=== PATIENT | male | born 1955 | race American Indian/Alaskan Native ===

== ENCOUNTER 2018-06-07 20:03 | Inpatient (IN) | payer OTHER ==
--- NOTE | 2018-06-07 20:22 | Emergency Department Report ---
ED Chest Pain HPI - General Chief Complaint: Chest Pain Stated Complaint: CHEST PAIN Time Seen by Provider: 06/07/18 20:19 Source: patient, EMS (ems notes not available at time of chart dictation), RN notes reviewed, old records reviewed Mode of arrival: Stretcher Limitations: No Limitations - History of Present Illness Initial Comments: This is a 62-year-old gentleman. The patient is not known to this provider previously. He does not have a primary care doctor that he is aware of. He is a chronic tobacco consumer. He presents to the emergency room today with complaint of nontraumatic central chest pain, present intermittently since 6:00 in the morning, shortness of breath, without vomiting or diaphoresis, and he describes his shortness of breath as "gasping for air." The patient does not have a formal diagnosis of COPD that he is aware of, and he does not have a formal diagnosis of obstructive sleep apnea but he is aware of. He was given albuterol therapy in the field by EMS, as well as aspirin prior to his arrival. In the emergency room, found to be hypoxic, tachycardic and wheezing, and treated for presumed COPD/emphysema. These interventions improved his symptoms, and he feels mostly improved at this point in time. The patient denies DVT, pulmonary embolus risk factors. He denies headache, neck pain, abdominal pain, hematemesis, bright red blood per rectum. MD Complaint: chest pain -: Gradual, hour(s) Onset: during rest Pain Location: substernal Pain Radiation: none Severity: moderate Quality: aching Consistency: intermittent Improves With: medication-other, rest Worsens With: movement Treatments Prior to Arrival: aspirin, other Aspirin use within the Past 7 Days: (1) Yes - Related Data On Oral Contraceptives: No Previous Rx's Medication Instructions Recorded Last Taken Type hydroCHLOROthiazide [HCTZ] 25 mg PO QDAY #30 tablet 12/19/17 Unknown Rx Allergies Allergy/AdvReac Type Severity Reaction Status Date / Time No Known Allergies Allergy Verified 01/18/16 19:40 Heart Score - HEART Score History: Moderately suspicious EKG: Non-specific Age: 45-65 Risk factors: 1-2 risk factors Troponin: < normal limit HEART Score: 4 - Critical Actions Critical Actions: 4-6 pts:12-16.6% risk of adverse cardiac event. Should be admitted ED Review of Systems ROS: Stated complaint: CHEST PAIN Other details as noted in HPI Constitutional: denies: fever, malaise Eyes: denies: eye discharge ENT: congestion Respiratory: shortness of breath, SOB with exertion, SOB at rest, wheezing Cardiovascular: chest pain Gastrointestinal: denies: abdominal pain, vomiting Genitourinary: denies: dysuria Musculoskeletal: denies: back pain Skin: denies: lesions Neurological: denies: weakness Psychiatric: anxiety ED Past Medical Hx - Past Medical History Previous Medical History?: Yes Hx Hypertension: Yes Hx Congestive Heart Failure: No Hx Diabetes: No Hx Asthma: No Hx COPD: No Hx HIV: No Additional medical history: prostate cancer - Surgical History Past Surgical History?: Yes Additional Surgical History: hand surgery - Social History Smoking Status: Current Every Day Smoker Substance Use Type: Alcohol - Medications Home Medications: Home Medications Medication Instructions Recorded Confirmed Last Taken Type hydroCHLOROthiazide [HCTZ] 25 mg PO QDAY #30 tablet 12/19/17 Unknown Rx ED Physical Exam - General Limitations: No Limitations General appearance: alert, anxious - Head Head exam: Present: atraumatic, normocephalic - Eye Eye exam: Present: normal appearance, EOMI. Absent: nystagmus - ENT ENT exam: Present: normal exam, normal orophraynx, mucous membranes moist, normal external ear exam - Neck Neck exam: Present: normal inspection, full ROM. Absent: tenderness, meningismus - Respiratory Respiratory exam: Present: respiratory distress, wheezes, rhonchi - Cardiovascular Cardiovascular Exam: Present: normal rhythm, tachycardia, normal heart sounds. Absent: systolic murmur, diastolic murmur, rubs, gallop - GI/Abdominal GI/Abdominal exam: Present: soft. Absent: distended, tenderness, guarding, rebound, rigid, pulsatile mass - Rectal Rectal exam: Present: deferred - Extremities Exam Extremities exam: Present: normal inspection, full ROM, other (2+ pulses noted in the bilateral upper, lower extremities. Compartments soft. No long bony tenderness. The pelvis is stable.). Absent: pedal edema, joint swelling, calf tenderness - Back Exam Back exam: Present: normal inspection, full ROM. Absent: tenderness, CVA tenderness (R), paraspinal tenderness, vertebral tenderness - Neurological Exam Neurological exam: Present: alert, other (Extraocular movements intact. Tongue midline. No facial droop. Facial sensation intact to light touch in the V1, V2, V3 distribution bilaterally. 5 and 5 strength in 4 extremities.. Sensation is intact to light touch in 4 extremities.). Absent: motor sensory deficit - Psychiatric Psychiatric exam: Present: normal affect, normal mood - Skin Skin exam: Present: warm, dry, intact, normal color. Absent: rash ED Course Vital Signs 06/07/18 06/07/18 06/07/18 20:16 20:30 20:54 Pulse Rate 107 H Pulse Rate [ Anterior Bilateral Throughout] Respiratory 12 16 Rate Respiratory Rate [Anterior Bilateral Throughout] Blood Pressure 146/79 O2 Sat by Pulse 92 89 Oximetry 06/07/18 20:56 Pulse Rate Pulse Rate [ 102 H Anterior Bilateral Throughout] Respiratory Rate Respiratory 16 Rate [Anterior Bilateral Throughout] Blood Pressure O2 Sat by Pulse Oximetry - Reevaluation(s) Reevaluation #1: 06/07/18 21:55 Dr. Liu accepts to the medical service. Patient appears to be clinically improved. NIMESH score - Nimesh Score Age > 65: (0) No Aspirin use within the Past 7 Days: (0) No 3 or more CAD Risk Factors: (0) No 2 or more Angina events in past 24 hrs: (0) No Known CAD with more than 50% Stenosis: (0) No Elevated Cardiac Markers: (0) No ST Deviation Greater than 0.5mm: (0) No NIMESH Score: 0 ED Medical Decision Making - Lab Data Result diagrams: 06/07/18 20:18 06/07/18 20:18 Vital Signs 06/07/18 06/07/18 06/07/18 20:16 20:30 20:54 Pulse Rate 107 H Pulse Rate [ Anterior Bilateral Throughout] Respiratory 12 16 Rate Respiratory Rate [Anterior Bilateral Throughout] Blood Pressure 146/79 O2 Sat by Pulse 92 89 Oximetry 06/07/18 20:56 Pulse Rate Pulse Rate [ 102 H Anterior Bilateral Throughout] Respiratory Rate Respiratory 16 Rate [Anterior Bilateral Throughout] Blood Pressure O2 Sat by Pulse Oximetry Lab Results 06/07/18 06/07/18 06/07/18 Range/Units 20:18 20:18 20:36 WBC 5.0 (4.5-11.0) K/mm3 RBC 3.83 (3.65-5.03) M/mm3 Hgb 12.7 (11.8-15.2) gm/dl Hct 37.3 (35.5-45.6) % MCV 97 H (84-94) fl MCH 33 H (28-32) pg MCHC 34 (32-34) % RDW 15.3 H (13.2-15.2) % Plt Count 143 (140-440) K/mm3 Lymph % (Auto) 8.0 L (13.4-35.0) % [place] % (Auto) 7.6 H (0.0-7.3) % Eos % (Auto) 9.1 H (0.0-4.3) % Baso % (Auto) 0.8 (0.0-1.8) % Lymph # 0.4 L (1.2-5.4) K/mm3 [place] # 0.4 (0.0-0.8) K/mm3 Eos # 0.5 H (0.0-0.4) K/mm3 Baso # 0.0 (0.0-0.1) K/mm3 Seg Neutrophils % 74.5 H (40.0-70.0) % Seg Neutrophils # 3.7 (1.8-7.7) K/mm3 PT 12.6 (12.2-14.9) Sec. INR 0.89 (0.87-1.13) APTT 24.8 (24.2-36.6) Sec. D-Dimer < 135.00 (0-234) ng/mlDDU Sodium 139 (137-145) mmol/L Potassium 3.7 (3.6-5.0) mmol/L Chloride 96.5 L (98-107) mmol/L Carbon Dioxide 29 (22-30) mmol/L Anion Gap 17 mmol/L BUN 10 (9-20) mg/dL Creatinine 0.9 (0.8-1.5) mg/dL Estimated GFR > 60 ml/min BUN/Creatinine Ratio 11 % Glucose 120 H (75-100) mg/dL Calcium 10.0 (8.4-10.2) mg/dL Magnesium (1.7-2.3) mg/dL Total Creatine Kinase (55-170) units/L Troponin T < 0.010 (0.00-0.029) ng/mL 06/07/18 Range/Units 20:36 WBC (4.5-11.0) K/mm3 RBC (3.65-5.03) M/mm3 Hgb (11.8-15.2) gm/dl Hct (35.5-45.6) % MCV (84-94) fl MCH (28-32) pg MCHC (32-34) % RDW (13.2-15.2) % Plt Count (140-440) K/mm3 Lymph % (Auto) (13.4-35.0) % [place] % (Auto) (0.0-7.3) % Eos % (Auto) (0.0-4.3) % Baso % (Auto) (0.0-1.8) % Lymph # (1.2-5.4) K/mm3 [place] # (0.0-0.8) K/mm3 Eos # (0.0-0.4) K/mm3 Baso # (0.0-0.1) K/mm3 Seg Neutrophils % (40.0-70.0) % Seg Neutrophils # (1.8-7.7) K/mm3 PT (12.2-14.9) Sec. INR (0.87-1.13) APTT (24.2-36.6) Sec. D-Dimer (0-234) ng/mlDDU Sodium (137-145) mmol/L Potassium (3.6-5.0) mmol/L Chloride (98-107) mmol/L Carbon Dioxide (22-30) mmol/L Anion Gap mmol/L BUN (9-20) mg/dL Creatinine (0.8-1.5) mg/dL Estimated GFR ml/min BUN/Creatinine Ratio % Glucose (75-100) mg/dL Calcium (8.4-10.2) mg/dL Magnesium 1.80 (1.7-2.3) mg/dL Total Creatine Kinase 432 H (55-170) units/L Troponin T (0.00-0.029) ng/mL - EKG Data -: EKG Interpreted by Ct EKG shows normal: sinus rhythm Rate: tachycardia - EKG Data When compared to previous EKG there are: previous EKG unavailable 06/07/18 21:15 Sinus tachycardia, 113 bpm, normal axis, QTC prolonged, motion artifact, left ventricular hypertrophy, this EKG is not consistent with ST elevation myocardial infarction. At this EKG is appears to be unchanged from prior EKG from 01/18/2016. - Radiology Data Radiology results: report reviewed, image reviewed Print Report Referring Physician: CLAIRE KRUGER Patient Name: SANGEETA TAVERAS Date of : 1955 Sex: Male Report Date: 2018-06-07 Report Status: Finalized Findings [facility] [address] [place] [address] XRay Report Signed Patient: SANGEETA TAVERAS MR#: [id number] : 1955 Acct:[id number] Age/Sex: 62 / M ADM Date: 06/07/18 Loc: ED Attending Dr: Ordering Physician: CLAIRE KRUGER MD Date of Service: 06/07/18 Procedure(s): XR chest 1V ap Accession Number(s): [id number] cc: CLAIRE KRUGER MD Fluoro Time In Minutes: PROCEDURE: XR CHEST 1V AP TECHNIQUE: Chest radiograph single view. HISTORY: Chest Pain COMPARISONS: None . FINDINGS: Heart: Normal. Mediastinum/Vessels: Normal. Lungs/Pleural space: Normal. Bony thorax: No acute osseous abnormality. Life support devices: None. IMPRESSION: No acute cardiopulmonary abnormality. This document is electronically signed by Rosalind Rai MD., June 07 2018 08:49:30 PM ET Transcribed By: [facility] [place] Dictated By: ROSALIND RAI Electronically Authenticated By: ROSALIND RAI Signed Date/Time: 06/07/182051 - Medical Decision Making Differential diagnosis, including not limited to: Bronchitis, pneumonia, COPD, emphysema, acute coronary syndrome, pneumothorax, pulmonary embolus Assessment and plan: 62-year-old gentleman with no pulmonary embolus or DVT risk factors, low risk by well's criteria, negative d-dimer, long-term use of tobacco consumption, with probable undiagnosed COPD, obstructive airway disease, with chest pain, now improved, negative nuclear stress test in 2016, negative troponin, EKG unchanged from prior, we have recommended admission for cardiac risk stratification given his heart score of 4, and for supportive care for presumed COPD. We have discussed this with patient, who verbalizes und erstanding, and is amenable to hospitalization and admission at this time. Critical care attestation.: If time is entered above; I have spent that time in minutes in the direct care of this critically ill patient, excluding procedure time. ED Disposition Clinical Impression: Chest pain, Difficulty breathing Disposition: DC-09 OP ADMIT IP TO THIS HOSP Is pt being admited?: Yes Does the pt Need Aspirin: No (aspirin given by EMS prior to my evaluation) Condition: Stable Instructions: Chest Pain (ED) Referrals: PRIMARY CARE, [Primary Care Provider] - 3-5 Days
[2018-06-07] MEDS ORDERED: SOLU-Medrol IV ONE (20:32)
[2018-06-07] MEDS ORDERED: ATROVENT IH ONE (20:32)
[2018-06-07] MEDS ORDERED: NACL 0.9% 250ML 250 ML IV ONE (20:32)
[2018-06-07] MEDS ORDERED: NITROSTAT SL PRN (20:32)
[2018-06-07] MEDS ORDERED: TYLENOL PO ONE (20:32)
[2018-06-07] MEDS ORDERED: PROVENTIL IH ONE (20:32)
[2018-06-07] MEDS ORDERED: MAGNESIUM SULFATE 2GM/50ML 2 GM/50 ML BAG IV ONE (20:42)
[2018-06-07 20:44] LABS: Basophils % (Auto) 0.8 % (0.0-1.8); Eosinophils # (Auto) 0.5 K/mm3 (0.0-0.4); Eosinophils % (Auto) 9.1 % (0.0-4.3); Hematocrit 37.3 % (35.5-45.6); Hemoglobin 12.7 gm/dl (11.8-15.2); Lymphocytes # (Auto) 0.4 K/mm3 (1.2-5.4); Mean Corpuscular HGB Conc 34 % (32-34); Mean Corpuscular Volume 97 fl (84-94); Monocytes # (Auto) 0.4 K/mm3 (0.0-0.8); Monocytes % (Auto) 7.6 % (0.0-7.3); Platelet Count 143 K/mm3 (140-440); Red Blood Count 3.83 M/mm3 (3.65-5.03); Red Cell Distribution Width 15.3 % (13.2-15.2)
--- NOTE | 2018-06-07 20:51 | XRay Report ---
PROCEDURE: XR CHEST 1V AP TECHNIQUE: Chest radiograph single view. HISTORY: Chest Pain COMPARISONS: None . FINDINGS: Heart: Normal. Mediastinum/Vessels: Normal. Lungs/Pleural space: Normal. Bony thorax: No acute osseous abnormality. Life support devices: None. IMPRESSION: No acute cardiopulmonary abnormality. This document is electronically signed by Silvino Rai MD., June 07 2018 08:49:30 PM ET
[2018-06-07 20:53] LABS: INR 0.89 (0.87-1.13); Partial Thromboplastin Time 24.8 Sec. (24.2-36.6)
[2018-06-07 21:04] LABS: BUN/Creatinine Ratio 11; Blood Urea Nitrogen 10 mg/dL (9-20); Hemolysis Index 6
[2018-06-07] MEDS ORDERED: MORPHINE IV ONE (22:29)
--- NOTE | 2018-06-07 22:58 | History and Physical Report ---
History of Present Illness Date of examination: 06/07/18 History of present illness: 62-year-old male with a history of prostate cancer, comes to the emergency room complaining of shortness of breath, wheezing, nonproductive cough. Also complaining of chest pain in the epigastric area which is a dull, constant pain, intensity 5/10, no radiation, can't identify exacerbating or relieving factors. Admits to diaphoresis, palpitation. Review of systems Constitutional: no weight loss, chills, fever Ears, eyes, nose, mouth and throat: no nasal congestion, no nasal discharge, no sinus pressure, no vision change, no red eye. Neck: No neck pain or rigidity. Cardiovascular: no palpitations,+ chest pain Respiratory: no cough, +shortness of breath Gastrointestinal: no abdominal pain Genitourinary : no frequency , no hematuria Musculoskeletal: no joint swelling or muscle ache Integumentary: no rash, no pruritis Neurological: no parathesias, no focal weakness Endocrine: no cold or heat intolerance, no polyuria or polydipsia Hematologic/Lymphatic: no easy bruising, no easy bleeding, no gland swelling Allergic/Immunologic: no urticaria, no angioedema. PAST MEDICAL HISTORY: prostate cancer PAST SURGICAL HISTORY: None SOCIAL HISTORY: Drink 1 pint of work on weekends, smoke 1 pack a day, no drugs FAMILY HISTORY: Hypertension Medications and Allergies Allergies Allergy/AdvReac Type Severity Reaction Status Date / Time No Known Allergies Allergy Verified 01/18/16 19:40 Active Meds: Active Medications Nitroglycerin (Nitrostat) 0.4 mg SL .Q5MIN PRN PRN Reason: Chest Pain Exam - Physical Exam Narrative exam: Gen. appearance: Patient lying in bed, no apparent distress HEENT: Normocephalic, atraumatic, pupils equally round and reactive to light, extraocular movement intact, and no sclericterus,. No JVD or thyromegaly or nodule,neck supple, no carotid bruit ,mucous membranes moist, no exudate or erythema Heart: S1, S2, regular rate and rhythm Lungs: Wheezing bilaterally, breathing comfortable Abdomen: Positive bowel sounds, non-tender, nondistended, no organomegaly Extremity:no edema cyanosis, clubbing Skin: no rash, dry, warm Neuro: Oriented 3, cranial nerves II-12 intact, speech is fluent, motor and sensory intact - Constitutional Vitals: Temp Pulse Resp BP Pulse Ox 88 18 142/78 99 06/07/18 22:48 06/07/18 22:48 06/07/18 22:00 06/07/18 22:00 Results - Labs CBC & Chem 7: 06/07/18 20:18 06/07/18 20:18 Labs: Abnormal lab results 06/07/18 06/07/18 06/07/18 Range/Units 20:18 20:18 20:36 MCV 97 H (84-94) fl MCH 33 H (28-32) pg RDW 15.3 H (13.2-15.2) % Lymph % (Auto) 8.0 L (13.4-35.0) % [place] % (Auto) 7.6 H (0.0-7.3) % Eos % (Auto) 9.1 H (0.0-4.3) % Lymph # 0.4 L (1.2-5.4) K/mm3 Eos # 0.5 H (0.0-0.4) K/mm3 Seg Neutrophils % 74.5 H (40.0-70.0) % Chloride 96.5 L (98-107) mmol/L Glucose 120 H (75-100) mg/dL Total Creatine Kinase 432 H (55-170) units/L - Imaging and Cardiology EKG: image reviewed Chest x-ray: report reviewed Assessment and Plan Assessment Chest pain Suspect COPD Plan Check cardiac enzymes, stress test start steroids, breathing treatment DVT prophylaxis
[2018-06-07] MEDS ORDERED: TYLENOL PO PRN (23:37)
[2018-06-07] MEDS ORDERED: ZOFRAN IV PRN (23:37)
[2018-06-07] MEDS ORDERED: MORPHINE IV PRN (23:37)
[2018-06-07] MEDS ORDERED: SODIUM CHLORIDE FLUSH SYRINGE 10 ML IV PRN (23:37)
[2018-06-08] MEDS: DUONEB *Not for PRN Use IH SCH ×4 (02:03→20:28)
[2018-06-08] MEDS ORDERED: APRESOLINE IV PRN ×2 (04:20→10:29)
[2018-06-08] MEDS ORDERED: SOLU-Medrol IV SCH ×2 (06:40→10:29)
[2018-06-08 08:26] LABS: Hematocrit 38.6 % (35.5-45.6); Hemoglobin 13.1 gm/dl (11.8-15.2); Mean Corpuscular HGB Conc 34 % (32-34); Mean Corpuscular Volume 96 fl (84-94); Red Blood Count 4.01 M/mm3 (3.65-5.03); Red Cell Distribution Width 15.6 % (13.2-15.2)
[2018-06-08 08:32] LABS: Platelet Count 146 K/mm3 (140-440)
[2018-06-08 08:45] LABS: Creatine Kinase MB 12.8 ng/mL (0.0-4.0)
[2018-06-08 09:09] LABS: BUN/Creatinine Ratio 15; Blood Urea Nitrogen 12 mg/dL (9-20); Calcium 9.9 mg/dL (8.4-10.2); Hemolysis Index 50
[2018-06-08] MEDS ORDERED: LOVENOX SUB-Q SCH (10:00)
[2018-06-08 10:48] LABS: Basophils % (Manual) 0 % (0.0-1.8); Eosinophils % (Manual) 0 % (0.0-4.3); Monocytes % (Manual) 0 % (0.0-7.3); Platelet Estimate Consistent w Auto; RBC Morphology Normal; Total Cells Counted 100
[2018-06-08] MEDS: LOVENOX SUB-Q SCH ×2 (11:09→11:35)
[2018-06-08] MEDS: SODIUM CHLORIDE FLUSH SYRINGE 10 ML IV SCH ×2 (11:10→21:05)
[2018-06-08] MEDS: HABITROL TD SCH (11:10)
[2018-06-08] MEDS: NORVASC PO SCH (11:11)
[2018-06-08] MEDS: COREG PO SCH ×2 (11:14→21:04)
--- NOTE | 2018-06-08 15:07 | Progress Note ---
Assessment and Plan Assessment and plan: Chest pain, rule out ACS -Serial troponin levels negative -For stress test in am Suspected COPD with acute exacerbation -Improving on treatment, will start steroid taper Hypertension -Uncontrolled, antihypertensives started Metabolic acidosis -We'll monitor level Hyperglycemia -Probably secondary to steroid use -We'll check hemoglobin A1c level Tobacco abuse -Continue nicotine patch Disposition: For possible discharge tomorrow if stress test is negative History Interval history: Patient reports feeling better today. He denies current chest pain. Hospitalist Physical - Constitutional Vitals: Temp Pulse Resp BP Pulse Ox 98.0 F 90 20 154/85 94 06/08/18 11:40 06/08/18 13:45 06/08/18 13:45 06/08/18 11:40 06/08/18 11:40 General appearance: Present: no acute distress - EENT Eyes: Present: PERRL, EOM intact ENT: hearing intact, clear oral mucosa - Neck Neck: Present: supple - Respiratory Respiratory effort: normal Respiratory: bilateral: CTA - Cardiovascular Rhythm: regular Heart Sounds: Present: S1 & S2 - Extremities Extremities: No edema - Abdominal General gastrointestinal: soft, non-tender, non-distended, normal bowel sounds - Integumentary Integumentary: Present: clear, warm, dry - Neurologic Neurologic: CNII-XII intact Results - Labs CBC & Chem 7: 06/08/18 08:08 06/08/18 08:08 Labs: Laboratory Last Values WBC 5.6 K/mm3 (4.5-11.0) 06/08/18 08:08 RBC 4.01 M/mm3 (3.65-5.03) 06/08/18 08:08 Hgb 13.1 gm/dl (11.8-15.2) 06/08/18 08:08 Hct 38.6 % (35.5-45.6) 06/08/18 08:08 MCV 96 fl (84-94) H 06/08/18 08:08 MCH 33 pg (28-32) H 06/08/18 08:08 MCHC 34 % (32-34) 06/08/18 08:08 RDW 15.6 % (13.2-15.2) H 06/08/18 08:08 Plt Count 146 K/mm3 (140-440) 06/08/18 08:08 Lymph % (Auto) 8.0 % (13.4-35.0) L 06/07/18 20:18 [place] % (Auto) 7.6 % (0.0-7.3) H 06/07/18 20:18 Eos % (Auto) 9.1 % (0.0-4.3) H 06/07/18 20:18 Baso % (Auto) 0.8 % (0.0-1.8) 06/07/18 20:18 Lymph # 0.4 K/mm3 (1.2-5.4) L 06/07/18 20:18 [place] # 0.4 K/mm3 (0.0-0.8) 06/07/18 20:18 Eos # 0.5 K/mm3 (0.0-0.4) H 06/07/18 20:18 Baso # 0.0 K/mm3 (0.0-0.1) 06/07/18 20:18 Add Manual Diff Complete 06/08/18 08:08 Total Counted 100 06/08/18 08:08 Seg Neutrophils % Red Lead Burner 06/08/18 08:08 Seg Neuts % (Manual) 99.0 % (40.0-70.0) H 06/08/18 08:08 Band Neutrophils % 0 % 06/08/18 08:08 Lymphocytes % (Manual) 1.0 % (13.4-35.0) L 06/08/18 08:08 Reactive Lymphs % (Man) 0 % 06/08/18 08:08 Monocytes % (Manual) 0 % (0.0-7.3) 06/08/18 08:08 Eosinophils % (Manual) 0 % (0.0-4.3) 06/08/18 08:08 Basophils % (Manual) 0 % (0.0-1.8) 06/08/18 08:08 Metamyelocytes % 0 % 06/08/18 08:08 Myelocytes % 0 % 06/08/18 08:08 Promyelocytes % 0 % 06/08/18 08:08 Blast Cells % 0 % 06/08/18 08:08 Nucleated RBC % 1.0 % (0.0-0.9) H 06/08/18 08:08 Seg Neutrophils # 3.7 K/mm3 (1.8-7.7) 06/07/18 20:18 Seg Neutrophils # Man 5.5 K/mm3 (1.8-7.7) 06/08/18 08:08 Band Neutrophils # 0.0 K/mm3 06/08/18 08:08 Lymphocytes # (Manual) 0.1 K/mm3 (1.2-5.4) L 06/08/18 08:08 Abs React Lymphs (Man) 0.0 K/mm3 06/08/18 08:08 Monocytes # (Manual) 0.0 K/mm3 (0.0-0.8) 06/08/18 08:08 Eosinophils # (Manual) 0.0 K/mm3 (0.0-0.4) 06/08/18 08:08 Basophils # (Manual) 0.0 K/mm3 (0.0-0.1) 06/08/18 08:08 Metamyelocytes # 0.0 K/mm3 06/08/18 08:08 Myelocytes # 0.0 K/mm3 06/08/18 08:08 Promyelocytes # 0.0 K/mm3 06/08/18 08:08 Blast Cells # 0.0 K/mm3 06/08/18 08:08 WBC Morphology Not Reportable 06/08/18 08:08 Hypersegmented Neuts Not Reportable 06/08/18 08:08 Hyposegmented Neuts Not Reportable 06/08/18 08:08 Hypogranular Neuts Not Reportable 06/08/18 08:08 Smudge Cells Not Reportable 06/08/18 08:08 Toxic Granulation Not Reportable 06/08/18 08:08 Toxic Vacuolation Not Reportable 06/08/18 08:08 Dohle Bodies Not Reportable 06/08/18 08:08 Pelger-Huet Anomaly Not Reportable 06/08/18 08:08 Aura Rods Not Reportable 06/08/18 08:08 Platelet Estimate Consistent w auto 06/08/18 08:08 Clumped Platelets Not Reportable 06/08/18 08:08 Plt Clumps, EDTA Not Reportable 06/08/18 08:08 Large Platelets Not Reportable 06/08/18 08:08 Giant Platelets Not Reportable 06/08/18 08:08 Platelet Satelliting Not Reportable 06/08/18 08:08 Plt Morphology Comment Not Reportable 06/08/18 08:08 RBC Morphology Normal 06/08/18 08:08 Dimorphic RBCs Not Reportable 06/08/18 08:08 Polychromasia Not Reportable 06/08/18 08:08 Hypochromasia Not Reportable 06/08/18 08:08 Poikilocytosis Not Reportable 06/08/18 08:08 Anisocytosis Not Reportable 06/08/18 08:08 Microcytosis Not Reportable 06/08/18 08:08 Macrocytosis Not Reportable 06/08/18 08:08 Spherocytes Not Reportable 06/08/18 08:08 Pappenheimer Bodies Not Reportable 06/08/18 08:08 Sickle Cells Not Reportable 06/08/18 08:08 Target Cells Not Reportable 06/08/18 08:08 Tear Drop Cells Not Reportable 06/08/18 08:08 Ovalocytes Not Reportable 06/08/18 08:08 Helmet Cells Not Reportable 06/08/18 08:08 Bird-Ambler Bodies Not Reportable 06/08/18 08:08 Blanch Rings Not Reportable 06/08/18 08:08 [place] Cells Not Reportable 06/08/18 08:08 Bite Cells Not Reportable 06/08/18 08:08 Crenated Cell Not Reportable 06/08/18 08:08 Elliptocytes Not Reportable 06/08/18 08:08 Acanthocytes (Spur) Not Reportable 06/08/18 08:08 Rouleaux Not Reportable 06/08/18 08:08 Hemoglobin C Crystals Not Reportable 06/08/18 08:08 Schistocytes Not Reportable 06/08/18 08:08 Malaria parasites Not Reportable 06/08/18 08:08 Cassius Bodies Not Reportable 06/08/18 08:08 Hem Pathologist Commnt No 06/08/18 08:08 PT 12.6 Sec. (12.2-14.9) 06/07/18 20:36 INR 0.89 (0.87-1.13) 06/07/18 20:36 APTT 24.8 Sec. (24.2-36.6) 06/07/18 20:36 D-Dimer < 135.00 ng/mlDDU (0-234) 06/07/18 20:36 Sodium 140 mmol/L (137-145) 06/08/18 08:08 Potassium 4.1 mmol/L (3.6-5.0) 06/08/18 08:08 Chloride 97.8 mmol/L (98-107) L 06/08/18 08:08 Carbon Dioxide 20 mmol/L (22-30) L D 06/08/18 08:08 Anion Gap 26 mmol/L 06/08/18 08:08 BUN 12 mg/dL (9-20) 06/08/18 08:08 Creatinine 0.8 mg/dL (0.8-1.5) 06/08/18 08:08 Estimated GFR > 60 ml/min 06/08/18 08:08 BUN/Creatinine Ratio 15 % 06/08/18 08:08 Glucose 155 mg/dL (75-100) H 06/08/18 08:08 Calcium 9.9 mg/dL (8.4-10.2) 06/08/18 08:08 Magnesium 1.80 mg/dL (1.7-2.3) 06/07/18 20:36 Total Creatine Kinase < 7 units/L (55-170) L 06/08/18 08:08 CK-MB (CK-2) 12.8 ng/mL (0.0-4.0) H 06/08/18 08:08 CK-MB (CK-2) Rel Index 100.0 (0-4) H 06/08/18 08:08 Troponin T < 0.010 ng/mL (0.00-0.029) 06/08/18 08:08 Active Medications - Current Medications Current Medications: Generic Name Dose Route Start Last Admin Trade Name Freq PRN Reason Stop Dose Admin Acetaminophen 650 mg 06/07/18 23:37 Tylenol PO Q4H PRN Pain MILD(1-3)/Fever >100.5/BARRY Albuterol/Ipratropium 1 ampul 06/08/18 02:00 06/08/18 13:35 Duoneb *Not For Prn Use* IH 1 ampul Q6HRT PETER Administration Amlodipine Besylate 10 mg 06/08/18 11:00 06/08/18 11:11 Norvasc PO 10 mg QDAY PETER Administration Carvedilol 25 mg 06/08/18 11:00 06/08/18 11:14 Coreg PO 25 mg BID PETER Administration Enoxaparin Sodium 40 mg 06/08/18 10:00 06/08/18 11:35 Lovenox SUB-Q Not Given QDAY@1000 [facility] Hydralazine HCl 10 mg 06/08/18 10:29 Apresoline IV Q6H PRN Hypertension Methylprednisolone Sodium Succinate 40 mg 06/08/18 22:00 Solu-Medrol IV Q12HR [facility] Morphine Sulfate 2 mg 06/07/18 23:37 Morphine IV Q4H PRN Pain, Moderate (4-6) Nicotine 21 mg 06/08/18 10:00 06/08/18 11:10 Habitrol TD 21 mg QDAY [facility] Administration Nitroglycerin 0.4 mg 06/07/18 20:32 Nitrostat SL .Q5MIN PRN Chest Pain Ondansetron HCl 4 mg 06/07/18 23:37 Zofran IV Q4H PRN Nausea And Vomiting Sodium Chloride 10 ml 06/08/18 10:00 06/08/18 11:10 Sodium Chloride Flush Syringe 10 Ml IV 10 ml BID PETER Administration Sodium Chloride 10 ml 06/07/18 23:37 Sodium Chloride Flush Syringe 10 Ml IV PRN PRN LINE FLUSH
[2018-06-08] MEDS: SOLU-Medrol IV SCH (21:04)
[2018-06-09] MEDS: DUONEB *Not for PRN Use IH SCH ×4 (02:20→20:24)
[2018-06-09 06:52] LABS: BUN/Creatinine Ratio 24; Blood Urea Nitrogen 19 mg/dL (9-20); Calcium 9.4 mg/dL (8.4-10.2); Hemolysis Index 8
[2018-06-09] MEDS ORDERED: LEXISCAN IV ONE ×2 (13:14→13:15)
[2018-06-09] MEDS: NORVASC PO SCH (14:51)
[2018-06-09] MEDS: COREG PO SCH ×2 (14:51→21:28)
[2018-06-09] MEDS: HABITROL TD SCH (14:52)
[2018-06-09] MEDS: SODIUM CHLORIDE FLUSH SYRINGE 10 ML IV SCH ×2 (14:53→21:28)
[2018-06-09] MEDS: LOVENOX SUB-Q SCH (14:55)
[2018-06-09] MEDS: SOLU-Medrol IV SCH (14:57)
--- NOTE | 2018-06-09 17:48 | Progress Note ---
Assessment and Plan Assessment and plan: Chest pain, rule out ACS -Serial troponin levels negative -stress test done, report pending Suspected COPD with acute exacerbation -Improved, continue steroid taper and nebulizer breathing treatments Hypertension -Controlled Metabolic acidosis -Resolved Prediabetes with hemoglobin A1c level of 6.4 -Diet control recommended Tobacco abuse -Continue nicotine patch Disposition: For discharge if stress test is negative History Interval history: Patient has no new complaints. He denies current chest pain. Hospitalist Physical - Constitutional Vitals: Temp Pulse Resp BP Pulse Ox 98 F 96 H 16 113/76 93 06/09/18 17:26 06/09/18 17:26 06/09/18 17:26 06/09/18 17:26 06/09/18 17:26 General appearance: Present: no acute distress - EENT Eyes: Present: PERRL, EOM intact ENT: hearing intact, clear oral mucosa - Neck Neck: Present: supple - Respiratory Respiratory effort: normal Respiratory: bilateral: CTA - Cardiovascular Rhythm: regular Heart Sounds: Present: S1 & S2 - Extremities Extremities: No edema - Abdominal General gastrointestinal: soft, non-tender, normal bowel sounds - Integumentary Integumentary: Present: clear, warm, dry - Neurologic Neurologic: CNII-XII intact Results - Labs CBC & Chem 7: 06/08/18 08:08 06/09/18 05:23 Labs: Laboratory Last Values WBC 5.6 K/mm3 (4.5-11.0) 06/08/18 08:08 RBC 4.01 M/mm3 (3.65-5.03) 06/08/18 08:08 Hgb 13.1 gm/dl (11.8-15.2) 06/08/18 08:08 Hct 38.6 % (35.5-45.6) 06/08/18 08:08 MCV 96 fl (84-94) H 06/08/18 08:08 MCH 33 pg (28-32) H 06/08/18 08:08 MCHC 34 % (32-34) 06/08/18 08:08 RDW 15.6 % (13.2-15.2) H 06/08/18 08:08 Plt Count 146 K/mm3 (140-440) 06/08/18 08:08 Lymph % (Auto) 8.0 % (13.4-35.0) L 06/07/18 20:18 [place] % (Auto) 7.6 % (0.0-7.3) H 06/07/18 20:18 Eos % (Auto) 9.1 % (0.0-4.3) H 06/07/18 20:18 Baso % (Auto) 0.8 % (0.0-1.8) 06/07/18 20:18 Lymph # 0.4 K/mm3 (1.2-5.4) L 06/07/18 20:18 [place] # 0.4 K/mm3 (0.0-0.8) 06/07/18 20:18 Eos # 0.5 K/mm3 (0.0-0.4) H 06/07/18 20:18 Baso # 0.0 K/mm3 (0.0-0.1) 06/07/18 20:18 Add Manual Diff Complete 06/08/18 08:08 Total Counted 100 06/08/18 08:08 Seg Neutrophils % Stamp Mounter 06/08/18 08:08 Seg Neuts % (Manual) 99.0 % (40.0-70.0) H 06/08/18 08:08 Band Neutrophils % 0 % 06/08/18 08:08 Lymphocytes % (Manual) 1.0 % (13.4-35.0) L 06/08/18 08:08 Reactive Lymphs % (Man) 0 % 06/08/18 08:08 Monocytes % (Manual) 0 % (0.0-7.3) 06/08/18 08:08 Eosinophils % (Manual) 0 % (0.0-4.3) 06/08/18 08:08 Basophils % (Manual) 0 % (0.0-1.8) 06/08/18 08:08 Metamyelocytes % 0 % 06/08/18 08:08 Myelocytes % 0 % 06/08/18 08:08 Promyelocytes % 0 % 06/08/18 08:08 Blast Cells % 0 % 06/08/18 08:08 Nucleated RBC % 1.0 % (0.0-0.9) H 06/08/18 08:08 Seg Neutrophils # 3.7 K/mm3 (1.8-7.7) 06/07/18 20:18 Seg Neutrophils # Man 5.5 K/mm3 (1.8-7.7) 06/08/18 08:08 Band Neutrophils # 0.0 K/mm3 06/08/18 08:08 Lymphocytes # (Manual) 0.1 K/mm3 (1.2-5.4) L 06/08/18 08:08 Abs React Lymphs (Man) 0.0 K/mm3 06/08/18 08:08 Monocytes # (Manual) 0.0 K/mm3 (0.0-0.8) 06/08/18 08:08 Eosinophils # (Manual) 0.0 K/mm3 (0.0-0.4) 06/08/18 08:08 Basophils # (Manual) 0.0 K/mm3 (0.0-0.1) 06/08/18 08:08 Metamyelocytes # 0.0 K/mm3 06/08/18 08:08 Myelocytes # 0.0 K/mm3 06/08/18 08:08 Promyelocytes # 0.0 K/mm3 06/08/18 08:08 Blast Cells # 0.0 K/mm3 06/08/18 08:08 WBC Morphology Not Reportable 06/08/18 08:08 Hypersegmented Neuts Not Reportable 06/08/18 08:08 Hyposegmented Neuts Not Reportable 06/08/18 08:08 Hypogranular Neuts Not Reportable 06/08/18 08:08 Smudge Cells Not Reportable 06/08/18 08:08 Toxic Granulation Not Reportable 06/08/18 08:08 Toxic Vacuolation Not Reportable 06/08/18 08:08 Dohle Bodies Not Reportable 06/08/18 08:08 Pelger-Huet Anomaly Not Reportable 06/08/18 08:08 Aura Rods Not Reportable 06/08/18 08:08 Platelet Estimate Consistent w auto 06/08/18 08:08 Clumped Platelets Not Reportable 06/08/18 08:08 Plt Clumps, EDTA Not Reportable 06/08/18 08:08 Large Platelets Not Reportable 06/08/18 08:08 Giant Platelets Not Reportable 06/08/18 08:08 Platelet Satelliting Not Reportable 06/08/18 08:08 Plt Morphology Comment Not Reportable 06/08/18 08:08 RBC Morphology Normal 06/08/18 08:08 Dimorphic RBCs Not Reportable 06/08/18 08:08 Polychromasia Not Reportable 06/08/18 08:08 Hypochromasia Not Reportable 06/08/18 08:08 Poikilocytosis Not Reportable 06/08/18 08:08 Anisocytosis Not Reportable 06/08/18 08:08 Microcytosis Not Reportable 06/08/18 08:08 Macrocytosis Not Reportable 06/08/18 08:08 Spherocytes Not Reportable 06/08/18 08:08 Pappenheimer Bodies Not Reportable 06/08/18 08:08 Sickle Cells Not Reportable 06/08/18 08:08 Target Cells Not Reportable 06/08/18 08:08 Tear Drop Cells Not Reportable 06/08/18 08:08 Ovalocytes Not Reportable 06/08/18 08:08 Helmet Cells Not Reportable 06/08/18 08:08 Bird-Mcclure Bodies Not Reportable 06/08/18 08:08 [place] Rings Not Reportable 06/08/18 08:08 [place] Cells Not Reportable 06/08/18 08:08 Bite Cells Not Reportable 06/08/18 08:08 Crenated Cell Not Reportable 06/08/18 08:08 Elliptocytes Not Reportable 06/08/18 08:08 Acanthocytes (Spur) Not Reportable 06/08/18 08:08 Rouleaux Not Reportable 06/08/18 08:08 Hemoglobin C Crystals Not Reportable 06/08/18 08:08 Schistocytes Not Reportable 06/08/18 08:08 Malaria parasites Not Reportable 06/08/18 08:08 Cassius Bodies Not Reportable 06/08/18 08:08 Hem Pathologist Commnt No 06/08/18 08:08 PT 12.6 Sec. (12.2-14.9) 06/07/18 20:36 INR 0.89 (0.87-1.13) 06/07/18 20:36 APTT 24.8 Sec. (24.2-36.6) 06/07/18 20:36 D-Dimer < 135.00 ng/mlDDU (0-234) 06/07/18 20:36 Sodium 137 mmol/L (137-145) 06/09/18 05:23 Potassium 4.8 mmol/L (3.6-5.0) 06/09/18 05:23 Chloride 100.8 mmol/L (98-107) 06/09/18 05:23 Carbon Dioxide 26 mmol/L (22-30) 06/09/18 05:23 Anion Gap 15 mmol/L 06/09/18 05:23 BUN 19 mg/dL (9-20) 06/09/18 05:23 Creatinine 0.8 mg/dL (0.8-1.5) 06/09/18 05:23 Estimated GFR > 60 ml/min 06/09/18 05:23 BUN/Creatinine Ratio 24 % 06/09/18 05:23 Glucose 145 mg/dL (75-100) H 06/09/18 05:23 Hemoglobin A1c 6.4 % (4-6) H 06/09/18 05:23 Calcium 9.4 mg/dL (8.4-10.2) 06/09/18 05:23 Magnesium 1.80 mg/dL (1.7-2.3) 06/07/18 20:36 Total Creatine Kinase < 7 units/L (55-170) L 06/08/18 08:08 CK-MB (CK-2) 12.8 ng/mL (0.0-4.0) H 06/08/18 08:08 CK-MB (CK-2) Rel Index 100.0 (0-4) H 06/08/18 08:08 Troponin T < 0.010 ng/mL (0.00-0.029) 06/08/18 08:08 Active Medications - Current Medications Current Medications: Generic Name Dose Route Start Last Admin Trade Name Freq PRN Reason Stop Dose Admin Acetaminophen 650 mg 06/07/18 23:37 06/08/18 20:41 Tylenol PO 650 mg Q4H PRN Administration Pain MILD(1-3)/Fever >100.5/BARRY Albuterol/Ipratropium 1 ampul 06/08/18 02:00 06/09/18 14:37 Duoneb *Not For Prn Use* IH Not Given Q6HRT PETER Amlodipine Besylate 10 mg 06/08/18 11:00 06/09/18 14:51 Norvasc PO 10 mg QDAY PETER Administration Carvedilol 25 mg 06/08/18 11:00 06/09/18 14:51 Coreg PO 25 mg BID PETER Administration Enoxaparin Sodium 40 mg 06/08/18 10:00 06/09/18 14:55 Lovenox SUB-Q Not Given QDAY@1000 [facility] Hydralazine HCl 10 mg 06/08/18 10:29 Apresoline IV Q6H PRN Hypertension Methylprednisolone Sodium Succinate 40 mg 06/08/18 22:00 06/09/18 14:57 Solu-Medrol IV 40 mg Q12HR PETER Administration Morphine Sulfate 2 mg 06/07/18 23:37 Morphine IV Q4H PRN Pain, Moderate (4-6) Nicotine 21 mg 06/08/18 10:00 06/09/18 14:52 Habitrol TD 21 mg QDAY [facility] Administration Nitroglycerin 0.4 mg 06/07/18 20:32 Nitrostat SL .Q5MIN PRN Chest Pain Ondansetron HCl 4 mg 06/07/18 23:37 Zofran IV Q4H PRN Nausea And Vomiting Sodium Chloride 10 ml 06/08/18 10:00 06/09/18 14:53 Sodium Chloride Flush Syringe 10 Ml IV 10 ml BID PETER Administration Sodium Chloride 10 ml 06/07/18 23:37 Sodium Chloride Flush Syringe 10 Ml IV PRN PRN LINE FLUSH
--- NOTE | 2018-06-09 17:51 | Event Note ---
Date: 06/09/18 Stress thallium was normal-exercised 6 min Jay protocol.
[2018-06-09] MEDS ORDERED: PROVENTIL IH PRN (22:01)
--- NOTE | 2018-06-10 02:01 | Treadmill Report ---
THALLIUM STRESS TEST LEFT VENTRICLE: Left ventricular chamber size is within normal spread. Perfusion study demonstrates homogeneous uptake of the tracer in all segments, no significant perfusion defect identified. Gated analysis demonstrates normal left ventricular systolic function, ejection fraction 59%. CONCLUSION: Normal myocardial perfusion study. JOB# [id number] CA/NTS
[2018-06-10] MEDS ORDERED: DUONEB *Not for PRN Use IH SCH (08:00)
[2018-06-10] MEDS: HABITROL TD SCH (09:13)
[2018-06-10] MEDS: SODIUM CHLORIDE FLUSH SYRINGE 10 ML IV SCH (09:14)
[2018-06-10] MEDS: COREG PO SCH (09:14)
[2018-06-10] MEDS: NORVASC PO SCH (09:14)
[2018-06-10] MEDS: LOVENOX SUB-Q SCH (09:19)
[2018-06-10] MEDS ORDERED: DELTASONE PO SCH (10:00)
[2018-06-10 11:57] VITALS: BP 118/69
--- NOTE | 2018-06-10 13:34 | Discharge Summary ---
Providers - Providers Date of Admission: 06/07/18 22:56 Date of discharge: 06/10/18 Attending physician: DARCY OTT Primary care physician: [employer]OR Hospitalization Reason for admission: Chest pain, rule out ACS, Suspected COPD with acute exacerbation Condition: Stable Pertinent studies: -Chest x-ray -Stress test Procedures: None Hospital course: Final discharge diagnosis: -Atypical chest pain, exact cause unknown (ACS ruled out) -Suspected COPD with acute exacerbation -Hypertensive urgency -Metabolic acidosis, resolved -New Prediabetes with hemoglobin A1c level of 6.4 -Tobacco abuse Hospital course: Patient was admitted and placed in chest pain pathway. In addition, he was placed on IV steroid and nebulizer breathing treatment for the suspected COPD exacerbation. He later developed metabolic acidosis which improved with IV fluid. At some point, his blood pressure accelerated for which he received antihypertensives. Thereafter, the patient underwent exercise stress testing, which was reported as negative for acute ischemia. Subsequently, he improved clinically and he was then deemed stable for discharge with clinic follow-up. Of note, patient was found to be prediabetic for which he received diabetic teaching prior to discharge. He was also counseled on smoking cessation and he requested for nicotine patch prescription on discharge. Prior to discharge, the patient was chest pain-free. Disposition: - TO HOME OR SELFCARE Time spent for discharge: 32 minutes Core Measure Documentation - Palliative Care Palliative Care/ Comfort Measures: Not Applicable - Core Measures Any of the following diagnoses?: none Exam - Constitutional Vitals: Temp Pulse Resp BP Pulse Ox 98.0 F 79 18 118/69 94 06/10/18 11:56 06/10/18 11:56 06/10/18 11:56 06/10/18 11:56 06/10/18 11:56 General appearance: Present: no acute distress, well-nourished - EENT Eyes: Present: PERRL, EOM intact ENT: hearing intact, clear oral mucosa - Neck Neck: Present: supple, normal ROM - Respiratory Respiratory effort: normal Respiratory: bilateral: CTA - Cardiovascular Rhythm: regular Heart Sounds: Present: S1 & S2. Absent: rub, click - Extremities Extremities: pulses symmetrical, No edema Peripheral Pulses: within normal limits - Abdominal General gastrointestinal: Present: soft, non-tender, non-distended, normal bowel sounds Male genitourinary: Present: deferred - Integumentary Integumentary: Present: clear, warm, dry - Musculoskeletal Musculoskeletal: gait normal, strength equal bilaterally - Psychiatric Psychiatric: appropriate mood/affect, intact judgment & insight - Neurologic Neurologic: CNII-XII intact, moves all extremities Plan Follow up with: PRIMARY CARE,MD [Primary Care Provider] - 3-5 Days Forms: Work/School Release Form Prescriptions: Nicotine [Habitrol] 21 mg TD QDAY #30 patch amLODIPine [Norvasc] 10 mg PO QDAY #30 tablet ALBUTEROL Inhaler(NF) [VENTOLIN Inhaler(NF)] 1 puff IH Q6H PRN #1 inha PRN Reason: Shortness Of Breath
== END 2018-06-10 13:03 | disposition home or self-care (01) | DRG 191 ==
LOC: ED 20:03 → 4A 22:56
PROVIDERS: ADMIT Internal Medicine; ATTEND Internal Medicine
DX: J44.1 Chronic obstructive pulmonary disease with (acute) exacerbation (principal); I24.9 Acute ischemic heart disease, unspecified; E87.2 Acidosis; I10 Essential (primary) hypertension; F17.200 Nicotine dependence, unspecified, uncomplicated; E11.65 Type 2 diabetes mellitus with hyperglycemia; F41.9 Anxiety disorder, unspecified; Z85.46 Personal history of malignant neoplasm of prostate; Z82.49 Family history of ischemic heart disease and other diseases of the circulatory system; Z72.89 Other problems related to lifestyle
CPT/HCPCS: 36415; 71045; 78452; 80048; 82550; 82553; 83036; 83735; 84484; 85007; 85025; 85379; 85610; 85730; 93005; 93010; 93017; 94640; 94644; 99406; G0378; A9502; J0360; J1650; J2270; J2785; J2930; J3475; J7050; J7512

== ENCOUNTER 2018-07-28 18:49 | Emergency (ER) | payer OTHER ==
--- NOTE | 2018-07-28 19:12 | Emergency Department Report ---
Blank Doc - Documentation Documentation: This is a 63-year-old male that presents with chest pain, SOB, dizziness, and fatigue. This initial assessment/diagnostic orders/clinical plan/treatment(s) is/are subject to change based on patient's health status, clinical progression and re- assessment by fellow clinical providers in the ED. Further treatment and workup at subsequent clinical providers discretion. Patient/guardians urged not to elope from the ED as their condition may be serious if not clinically assessed and managed. Initial orders include: 1- Patient sent to MAIN ED for further evaluation and treatment 2- labs 3- EKG 4- CXR
[2018-07-28 19:47] LABS: Eosinophils # (Auto) 0.4 K/mm3 (0.0-0.4); Eosinophils % (Auto) 8.8 % (0.0-4.3); Hematocrit 36.2 % (35.5-45.6); Hemoglobin 12.5 gm/dl (11.8-15.2); Lymphocytes # (Auto) 0.4 K/mm3 (1.2-5.4); Lymphocytes % (Auto) 8.2 % (13.4-35.0); Mean Corpuscular HGB Conc 35 % (32-34); Mean Corpuscular Volume 97 fl (84-94); Monocytes # (Auto) 0.5 K/mm3 (0.0-0.8); Platelet Count 154 K/mm3 (140-440); Red Blood Count 3.71 M/mm3 (3.65-5.03); Red Cell Distribution Width 14.3 % (13.2-15.2)
[2018-07-28 19:58] LABS: INR 1.06 (0.87-1.13)
[2018-07-28 19:59] LABS: Partial Thromboplastin Time 26.4 Sec. (24.2-36.6)
[2018-07-28 20:03] LABS: BUN/Creatinine Ratio 15; Blood Urea Nitrogen 15 mg/dL (9-20); Calcium 9.4 mg/dL (8.4-10.2); Hemolysis Index 4
--- NOTE | 2018-07-28 22:11 | XRay Report ---
PROCEDURE: XR CHEST ROUTINE 2V TECHNIQUE: PA and lateral chest radiographs were obtained. HISTORY: Chest Pain COMPARISONS: 06/07/2018. FINDINGS: Heart: Normal. Mediastinum/Vessels: Tortuous or ectatic aorta. Lungs/Pleural space: No infiltrate, effusion, or pneumothorax. Bony thorax: No acute osseous abnormality. IMPRESSION: Prominent aortic contour may be related to a tortuous or ectatic aorta. If there is acut e chest pain, further evaluation with CTA could be obtained to evaluate the aorta. This document is electronically signed by Caro Staley MD., July 28 2018 10:09:42 PM ET
--- NOTE | 2018-07-28 22:33 | Emergency Department Report ---
ED General Adult HPI - General Chief complaint: Dyspnea/Respdistress Stated complaint: SOB/HIGH BP Time Seen by Provider: 07/28/18 19:11 Source: patient Mode of arrival: Ambulatory Limitations: No Limitations - History of Present Illness Initial comments: 63-year-old male presents to ED with complaint of flashes. Patient recently underwent treatment for prostate cancer. Patient says due to that treatment, he suffers from hot flashes. Patient states he normally experiences numerous hot flashes throughout the day. However, twice today during his hot flashes, he experienced itching all over and brief shortness of breath during that period. Patient states once the hot flash resolved, the itching and the shortness of breath did as well. Patient denies chest pain, denies dyspnea at this time. Patient states he has had his normal hot flashes since those 2 episodes and they were not accompanied by itching or SOB. -: This evening Quality: other (itching) Consistency: intermittent, now resolved Improves with: none Worsens with: none Associated Symptoms: shortness of breath. denies: chest pain, fever/chills, headaches, nausea/vomiting, rash - Related Data Previous Rx's Medication Instructions Recorded Last Taken Type ALBUTEROL Inhaler(NF) [VENTOLIN 1 puff IH Q6H PRN #1 inha 06/10/18 Unknown Rx Inhaler(NF)] Nicotine [Habitrol] 21 mg TD QDAY #30 patch 06/10/18 Unknown Rx amLODIPine [Norvasc] 10 mg PO QDAY #30 tablet 06/10/18 Unknown Rx Allergies Allergy/AdvReac Type Severity Reaction Status Date / Time No Known Allergies Allergy Verified 01/18/16 19:40 ED Review of Systems ROS: Stated complaint: SOB/HIGH BP Other details as noted in HPI Comment: All other systems reviewed and negative Constitutional: denies: chills, fever Respiratory: shortness of breath. denies: cough Cardiovascular: denies: chest pain Endocrine: excessive sweating Gastrointestinal: denies: nausea, vomiting Neurological: denies: headache ED Past Medical Hx - Past Medical History Previous Medical History?: Yes Hx Hypertension: Yes Hx Congestive Heart Failure: No Hx Diabetes: No ('borderline') Hx Asthma: No Hx COPD: No Hx HIV: No Additional medical history: prostate cancer - Surgical History Past Surgical History?: Yes Additional Surgical History: hand surgery - Social History Smoking Status: Current Every Day Smoker - Medications Home Medications: Home Medications Medication Instructions Recorded Confirmed Last Taken Type ALBUTEROL Inhaler(NF) [VENTOLIN 1 puff IH Q6H PRN #1 inha 06/10/18 Unknown Rx Inhaler(NF)] Nicotine [Habitrol] 21 mg TD QDAY #30 patch 06/10/18 Unknown Rx amLODIPine [Norvasc] 10 mg PO QDAY #30 tablet 06/10/18 Unknown Rx ED Physical Exam - General Limitations: No Limitations General appearance: alert, in no apparent distress - Head Head exam: Present: atraumatic, normocephalic - Eye Eye exam: Present: normal appearance - ENT ENT exam: Present: mucous membranes moist - Neck Neck exam: Present: normal inspection - Respiratory Respiratory exam: Present: normal lung sounds bilaterally. Absent: respiratory distress - Cardiovascular Cardiovascular Exam: Present: regular rate, normal rhythm - GI/Abdominal GI/Abdominal exam: Present: soft. Absent: distended, tenderness - Extremities Exam Extremities exam: Present: normal inspection - Neurological Exam Neurological exam: Present: alert, oriented X3, CN II-XII intact. Absent: motor sensory deficit - Psychiatric Psychiatric exam: Present: normal affect, normal mood - Skin Skin exam: Present: warm, dry, intact, normal color. Absent: rash ED Course Vital Signs 07/28/18 07/28/18 19:12 23:03 Temperature 98.6 F Pulse Rate 68 86 Respiratory 18 17 Rate Blood Pressure 149/90 Blood Pressure 155/93 [Left] O2 Sat by Pulse 97 98 Oximetry ED Medical Decision Making - Lab Data Result diagrams: 07/28/18 19:20 07/28/18 19:20 - EKG Data -: EKG Interpreted by [place] EKG shows normal: sinus rhythm, axis, QRS complexes, ST-T waves Rate: normal - EKG Data Interpretation: no acute changes, other (prolonged QT) - Radiology Data Radiology results: report reviewed, image reviewed - Medical Decision Making - hx of hot flashes, reports assoc itching with these episodes tonight - vitals stable - workup unremarkable - no further episodes here in ED - pt ready for d/c home - return precautions given Critical care attestation.: If time is entered above; I have spent that time in minutes in the direct care of this critically ill patient, excluding procedure time. ED Disposition Clinical Impression: Hot flash due to medication Disposition: DC-01 TO HOME OR SELFCARE Is pt being admited?: No Condition: Stable Referrals: PRIMARY CARE, [Referring] - 3-5 Days Forms: Work/School Release Form(ED) Time of Disposition: 22:34
[2018-07-28 23:05] VITALS: BP 155/93
== END 2018-07-28 23:05 | disposition home or self-care (01) ==
LOC: ED 18:49
DX: R06.02 Shortness of breath (principal); L29.9 Pruritus, unspecified; R61 Generalized hyperhidrosis; F17.200 Nicotine dependence, unspecified, uncomplicated; I10 Essential (primary) hypertension; Z85.46 Personal history of malignant neoplasm of prostate
CPT/HCPCS: 36415; 71046; 80048; 84484; 85025; 85610; 85730; 93005; 93010

== ENCOUNTER 2020-12-19 23:44 | Emergency (ER) | payer OTHER ==
--- NOTE | 2020-12-20 00:08 | Emergency Department Report ---
HPI - General Chief Complaint: Arrhythmia/Palpitations Time Seen by Provider: 12/20/20 00:05 - HPI HPI: This is a 65-year-old -[place] male presents to the emergency department via EMS from work with complaint of some chest discomfort and palpitations that started after climbing some stairs. Patient says that he gets the symptoms "sometimes, but usually it goes away and this time it did not so they called 911." The patient was found to be in SVT with EMS. They attempted some vagal maneuvers and the patient cardioverted down to a heart rate of about 100. Patient has a history of previous prostate cancer with subsequent surgery, and hypertension. He is a tobacco smoker denies any illicit drug use or any alcohol use/dependence. No recent travel or sick contacts at home. At the time of my examination the patient says that he feels "great." ED Past Medical Hx - Past Medical History Hx Hypertension: Yes Hx Congestive Heart Failure: No Hx Diabetes: No ('borderline') Hx Asthma: No Hx COPD: No Hx HIV: No Additional medical history: prostate cancer - Surgical History Additional Surgical History: hand surgery - Social History Smoking Status: Current Every Day Smoker - Medications Home Medications: Home Medications Medication Instructions Recorded Confirmed Last Taken Type ALBUTEROL Inhaler(NF) [VENTOLIN 1 puff IH Q6H PRN #1 inha 06/10/18 Unknown Rx Inhaler(NF)] Nicotine [Habitrol] 21 mg TD QDAY #30 patch 06/10/18 Unknown Rx amLODIPine 10 mg PO QDAY #30 tablet 06/10/18 Unknown Rx ED Review of Systems ROS: Stated complaint: CHEST PAIN, SOB Other details as noted in HPI Comment: All other systems reviewed and negative Constitutional: denies: chills, fever Eyes: denies: eye pain, vision change ENT: denies: ear pain, throat pain Respiratory: denies: cough, shortness of breath Cardiovascular: chest pain (Resolved), palpitations (Resolved) Gastrointestinal: denies: abdominal pain, vomiting Genitourinary: denies: dysuria, discharge Musculoskeletal: denies: back pain, arthralgia Skin: denies: rash, lesions Neurological: denies: headache, weakness Physical Exam - Physical Exam Physical Exam: GENERAL: The patient is well-developed well-nourished. HENT: Normocephalic. Atraumatic. Patient has moist mucous membranes. EYES: Extraocular motions are intact. NECK: Supple. Trachea is midline. CHEST/LUNGS: Clear to auscultation. There is no respiratory distress noted. HEART/CARDIOVASCULAR: Regular. There is mild tachycardia. There is no murmur. ABDOMEN: Abdomen is soft, nontender. Patient has normal bowel sounds. SKIN: Skin is warm and dry. NEURO: The patient is awake, alert, and oriented. The patient is cooperative. The patient has no focal neurologic deficits. Normal speech. MUSCULOSKELETAL: There is no tenderness or deformity. There is no limitation range of motion. ED Medical Decision Making - Lab Data Result diagrams: 12/20/20 00:32 12/20/20 00:32 Lab Results 12/20/20 12/20/20 12/20/20 Range/Units 00:32 00:32 00:32 WBC 5.1 (4.5-11.0) K/mm3 RBC 4.24 (3.65-5.03) M/mm3 Hgb 13.9 (11.8-15.2) gm/dl Hct 42.1 (35.5-45.6) % MCV 99 H (84-94) fl MCH 33 H (28-32) pg MCHC 33 (32-34) % RDW 16.6 H (13.2-15.2) % Plt Count 148 (140-440) K/mm3 Lymph % (Auto) 10.0 L (13.4-35.0) % [place] % (Auto) 10.5 H (0.0-7.3) % Eos % (Auto) 0.9 (0.0-4.3) % Baso % (Auto) 0.2 (0.0-1.8) % Lymph # (Auto) 0.5 L (1.2-5.4) K/mm3 [place] # (Auto) 0.5 (0.0-0.8) K/mm3 Eos # (Auto) 0.0 (0.0-0.4) K/mm3 Baso # (Auto) 0.0 (0.0-0.1) K/mm3 Seg Neutrophils % 78.4 H (40.0-70.0) % Seg Neutrophils # 4.0 (1.8-7.7) K/mm3 D-Dimer 176.97 (0-234) ng/mlDDU Sodium 137 (137-145) mmol/L Potassium 3.8 (3.6-5.0) mmol/L Chloride 100.8 (98-107) mmol/L Carbon Dioxide 24 (22-30) mmol/L Anion Gap 16 mmol/L BUN 13 (9-20) mg/dL Creatinine 1.2 (0.8-1.3) mg/dL Estimated GFR > 60 ml/min BUN/Creatinine Ratio 11 % Glucose 137 H (75-100) mg/dL Calcium 9.0 (8.4-10.2) mg/dL Total Bilirubin 0.50 (0.1-1.2) mg/dL AST 19 (5-40) units/L ALT 23 (7-56) units/L Alkaline Phosphatase 105 (35-129) units/L Troponin T < 0.010 (0.00-0.029) ng/mL Total Protein 7.4 (6.3-8.2) g/dL Albumin 4.3 (3.9-5) g/dL Albumin/Globulin Ratio 1.4 % TSH (0.270-4.200) mlU/mL 12/20/20 Range/Units 00:32 WBC (4.5-11.0) K/mm3 RBC (3.65-5.03) M/mm3 Hgb (11.8-15.2) gm/dl Hct (35.5-45.6) % MCV (84-94) fl MCH (28-32) pg MCHC (32-34) % RDW (13.2-15.2) % Plt Count (140-440) K/mm3 Lymph % (Auto) (13.4-35.0) % [place] % (Auto) (0.0-7.3) % Eos % (Auto) (0.0-4.3) % Baso % (Auto) (0.0-1.8) % Lymph # (Auto) (1.2-5.4) K/mm3 [place] # (Auto) (0.0-0.8) K/mm3 Eos # (Auto) (0.0-0.4) K/mm3 Baso # (Auto) (0.0-0.1) K/mm3 Seg Neutrophils % (40.0-70.0) % Seg Neutrophils # (1.8-7.7) K/mm3 D-Dimer (0-234) ng/mlDDU Sodium (137-145) mmol/L Potassium (3.6-5.0) mmol/L Chloride (98-107) mmol/L Carbon Dioxide (22-30) mmol/L Anion Gap mmol/L BUN (9-20) mg/dL Creatinine (0.8-1.3) mg/dL Estimated GFR ml/min BUN/Creatinine Ratio % Glucose (75-100) mg/dL Calcium (8.4-10.2) mg/dL Total Bilirubin (0.1-1.2) mg/dL AST (5-40) units/L ALT (7-56) units/L Alkaline Phosphatase (35-129) units/L Troponin T (0.00-0.029) ng/mL Total Protein (6.3-8.2) g/dL Albumin (3.9-5) g/dL Albumin/Globulin Ratio % TSH 2.580 (0.270-4.200) mlU/mL - EKG Data -: EKG Interpreted by Me EKG shows normal: sinus rhythm, axis, intervals, QRS complexes, ST-T waves Rate: tachycardia (106 bpm) - EKG Data When compared to previous EKG there are: no significant change Interpretation: unchanged when compared t (07/28/18) - Radiology Data Radiology results: image reviewed interpreted by me: Chest x-ray does not show any acute process. There are no pleural effusions, obvious pneumonia and there is no pneumothorax. No widened mediastinum. - Medical Decision Making This patient presented to the emergency department after he developed some chest pain and palpitations at work, was found to have SVT with EMS, and converted with vagal maneuvers. The patient is asymptomatic upon arrival. Heart and lung sounds are normal to auscultation and the patient does not appear in any respiratory or acute distress. His EKG upon arrival shows a normal sinus rhythm, with mild tachycardia, but no morphology consistent with ST elevation myocardial infarction or any arrhythmia. Chest x-ray does not show any pneumonia, pleural effusions, pneumothorax, widened mediastinum, or any other acute process. Patient's labs have been unremarkable including CBC, metabolic panel, negative troponin, negative D-dimer and normal thyroid function. The patient was reevaluated multiple times over multiple hours and remains asymptomatic and there has been no return of any significant tachycardia or SVT. For all these reasons the patient appears safe for discharge home but will require outpatient cardiology follow-up. His contact information has been sent over to the [facility] and someone from their office should be contacting him shortly for close outpatient follow-up as part of our [place] [employer] low risk chest pain protocol. Critical Care Time: No Critical care attestation.: If time is entered above; I have spent that time in minutes in the direct care of this critically ill patient, excluding procedure time. ED Disposition Clinical Impression: SVT (supraventricular tachycardia) Disposition: HOME / SELF CARE / HOMELESS Is pt being admited?: No Condition: Stable Instructions: Supraventricular Tachycardia, Adult Additional Instructions: Please follow-up with a primary care physician. I am sending your contact information over to the [facility], and someone from their office should be contacting you shortly for close outpatient follow-up. 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 Llanos. Please try to avoid any excessive caffeine use or any stimulant use. Try to get 8 hours of uninterrupted sleep at night. Return to the emergency department with any worsening of your symptoms, new or concerning symptoms not addressed during this current emergency department visit, or with any acute distress. Referrals: MARGY LLANOS MD [Staff Physician] - 2-3 Days Time of Disposition: 02:02
[2020-12-20 00:45] LABS: Basophils % (Auto) 0.2 % (0.0-1.8); Eosinophils % (Auto) 0.9 % (0.0-4.3); Hematocrit 42.1 % (35.5-45.6); Hemoglobin 13.9 gm/dl (11.8-15.2); Lymphocytes # (Auto) 0.5 K/mm3 (1.2-5.4); Mean Corpuscular HGB Conc 33 % (32-34); Mean Corpuscular Volume 99 fl (84-94); Monocytes # (Auto) 0.5 K/mm3 (0.0-0.8); Monocytes % (Auto) 10.5 % (0.0-7.3); Platelet Count 148 K/mm3 (140-440); Red Blood Count 4.24 M/mm3 (3.65-5.03); Red Cell Distribution Width 16.6 % (13.2-15.2)
[2020-12-20 01:10] LABS: Alanine Aminotransferase 23 units/L (7-56); Albumin 4.3 g/dL (3.9-5); BUN/Creatinine Ratio 11; Blood Urea Nitrogen 13 mg/dL (9-20); Hemolysis Index 14
--- NOTE | 2020-12-20 02:27 | XRay Report ---
CHEST 2 VIEWS INDICATION / CLINICAL INFORMATION: Chest Pain. COMPARISON: 07/28/18 FINDINGS: SUPPORT DEVICES: None. HEART / MEDIASTINUM: No significant abnormality. LUNGS / PLEURA: No significant pulmonary or pleural abnormality. No pneumothorax. ADDITIONAL FINDINGS: No significant additional findings. IMPRESSION: 1. No acute findings. Signer Name: Christina Marcano MD Signed: 12/20/2020 2:22 AM Workstation Name: [id number]
[2020-12-20 02:38] VITALS: BP 148/90
--- NOTE | 2020-12-20 11:27 | Electrocardiograph Report ---
[facility] Test Date: 2020-12-20 Test Time: 00:26:50 Pat Name: SANGEETA TAVERAS Department: Room: Gender: M Balance Truer: NURSE : 1955 Requested By: PEDRO REAL Order Number: [id number] Reading MD: Amy Ricardo Measurements Intervals [place] Rate: 106 P: 37 VA: 155 QRS: 16 QRSD: 91 T: 27 QT: 374 QTc: 498 Interpretive Statements Sinus tachycardia No previous ECG available for comparison Electronically Signed On 12-20-2020 11:27:05 EST by Amy Ricardo
== END 2020-12-20 02:44 | disposition home or self-care (01) ==
LOC: ED 23:44
DX: I47.1 Supraventricular tachycardia (principal); I10 Essential (primary) hypertension; F17.200 Nicotine dependence, unspecified, uncomplicated; Z85.46 Personal history of malignant neoplasm of prostate
CPT/HCPCS: 36415; 71046; 80053; 84443; 84484; 85025; 85379; 93005; 99284